=== PATIENT | female | born 1960 | race Hispanic/Latino ===

== ENCOUNTER → 2017-11-03 | Outpatient (CLI) | payer OTHER ==
[~2017-11-03] MED LIST: DIATRIZOATE MEGL/DIATRIZOA SOD 30 ML BTL PO ONE; IOPAMIDOL 370 MG/ML 200 ML INFUS..BTL INJ ONE; SODIUM CHLORIDE 0.9% 50ML 50 ML ONE
[2017-11-03 17:20] LABS: BLOOD UREA NITROGEN 11 mg/dL (7-26); BUN/CREATININE RATIO 16 (6-25); CREATININE, SERUM 0.68 mg/dL (0.57-1.11); EST GLOMERULAR FILTRATION RATE > 60 ML/MIN (60-)
--- NOTE | 2017-11-03 18:43 | Diagnostic Imaging Report ---
PROCEDURE:CT ABDOMEN AND PELVIS WITH CONTRAST COMPARISON:None. INDICATIONS:DARK TARRY STOOLS, STOMACH VIRUS, STOMACH PAIN TECHNIQUE: Multidetector CT scanning of the abdomen and pelvis was performed after the administration of 100 cc Isovue-370 IV, and 30 cc Gastrografin orally. Coronal and sagittal reformations were obtained. Routine protocol performed. Total exam DLP: 222.23 mGy CM FINDINGS: Lung bases: Lung bases are clear. Heart size normal. Liver: No focal hepatic mass or intrahepatic bile duct dilatation. Biliary: The gallbladder is not visualized in keeping with history of cholecystectomy. There are no cholecystectomy clips seen. There is moderate dilatation of the common bile duct to 11 mm proximally, which may be seen normally following cholecystectomy. Spleen: No splenic mass or splenomegaly. Pancreas: No mass or duct dilatation. No peripancreatic inflammatory stranding. Adrenal Glands: No adrenal nodules. Kidneys: Symmetric renal enhancement. No mass, hydronephrosis or calculus. Gastrointestinal: No bowel dilatation. There is wall thickening throughout the sigmoid colon with mild adjacent inflammatory stranding distally. There is also mild inflammatory stranding surrounding with wall thickening in the distal small bowel. There is wall thickening of the distal esophagus. The appendix is not visualized in keeping with the provided history of prior appendectomy. Vasculature: Abdominal aorta, IVC and portal system appear unremarkable. Peritoneum/Retroperitoneum: No free air or ascites. Bladder: Urinary bladder unremarkable. There are surgical clips on the right and left sides of the pelvis. Musculoskeletal: No acute or suspicious bony lesions. There are degenerative changes in the lumbar spine. Superficial surrounding soft tissues shows bilateral inguinal hernias containing fat. CONCLUSION: 1. There is mural thickening of the sigmoid colon with mild surrounding inflammatory stranding. There is also inflammatory stranding with wall thickening involving the distal small bowel. These findings suggest the possibility of inflammatory or infectious enteritis and colitis. There are no prominent diverticula seen in the findings are less likely to represent diverticulitis. 2. Wall thickening of the distal esophagus which may be accentuated by lack of distention. Esophagitis is a consideration. Dictated by: Juma Larkin M.D. on 11/03/2017 at 18:52 Electronically approved by: Juma Larkin M.D. on 11/03/2017 at 18:52
== END ==
LOC: CT 16:27
PROVIDERS: ATTEND Internal Medicine Gastroenterology
DX: R10.84 Generalized abdominal pain (principal)
CPT/HCPCS: 36415; 74177; 82565; 84520; Q9967